=== PATIENT | female | born 1955 | race Caucasian/White ===

== ENCOUNTER 2018-06-06 14:26 | Inpatient (IN) | payer OTHER ==
[2018-06-06] MEDS ORDERED: VANCOMYCIN IV PER PHARMACY 1 EACH MISC MISCELLANE PRN (16:53)
--- NOTE | 2018-06-06 16:57 | ED ---
Extremity Problem HPI - General Chief complaint: Extremity Problem,Nontraumatic Stated complaint: infection in leg-sent by Time Seen by Provider: 06/06/18 15:00 Source: patient, RN notes reviewed Mode of arrival: ambulatory Limitations: no limitations - History of Present Illness Initial comments: This is a 63-year-old female presents emergency Department complaining of a leg infection on her left leg. Patient states she scraped and knee a over a week ago ago that area looked infected so she started on clindamycin. Patient states she's been on clinical myosin for 6 days and has not gotten any better and now her lower leg is more swollen and is more erythematous as well as tender. Patient denies any fever chills. Patient denies any calf tender. Patient denies any other area of redness or swelling. Patient denies any other problems at this time. Patient did see her primary medical care doctor and he wanted her sent in and admitted because she failed outpatient treatment. - Related Data Home Medications Medication Instructions Recorded Confirmed Aspirin EC [Ecotrin Low Dose] 162 mg PO DAILY 06/06/18 06/06/18 Clindamycin HCl 300 mg PO Q12HR 06/06/18 06/06/18 Levothyroxine Sodium 100 mcg PO DAILY 06/06/18 06/06/18 PARoxetine [Paxil] 20 mg PO DAILY 06/06/18 06/06/18 Allergies Allergy/AdvReac Type Severity Reaction Status Date / Time Penicillins Allergy Rash/Hives Verified 06/06/18 16:36 Review of Systems ROS Statement: Those systems with pertinent positive or pertinent negative responses have been documented in the HPI. ROS Other: All systems not noted in ROS Statement are negative. Past Medical History Past Medical History: Thyroid Disorder History of Any Multi-Drug Resistant Organisms: None Reported Additional Past Surgical History / Comment(s): vein stripping Past Psychological History: Anxiety Smoking Status: Current every day smoker Past Alcohol Use History: Occasional Past Drug Use History: None Reported General Exam - General Exam Comments Initial Comments: GENERAL: Patient is well-developed and well-nourished. Patient is nontoxic and well- hydrated and is in mild distress. ENT: Neck is soft and supple. No significant lymphadenopathy is noted. Oropharynx is clear. Moist mucous membranes. Neck has full range of motion without eliciting any pain. EYES: The sclera were anicteric and conjunctiva were pink and moist. Extraocular movements were intact and pupils were equal round and reactive to light. Eyelids were unremarkable. PULMONARY: Unlabored respirations. Good breath sounds bilaterally. No audible rales rhonchi or wheezing was noted. CARDIOVASCULAR: There is a regular rate and rhythm without any murmurs gallops or rubs. ABDOMEN: Soft and nontender with normal bowel sounds. SKIN: There is a superficial abrasion in the infrapatellar region on her left leg the area around it is quite erythematous warm and tender. Patient's lower leg is very swollen erythematous warm and tender there is no calf tenderness.. NEUROLOGIC: Patient is alert and oriented x3. Cranial nerves II through XII are grossly intact. Motor and sensory are also intact. Normal speech, volume and content. Symmetrical smile. MUSCULOSKELETAL: Normal extremities with adequate strength and full range of motion. No lower extremity swelling or edema. No calf tenderness. LYMPHATICS: No significant lymphadenopathy is noted PSYCHIATRIC: Normal psychiatric evaluation. Limitations: no limitations Course Vital Signs 06/06/18 14:42 Temperature 98.3 F Pulse Rate 85 Respiratory 20 Rate Blood Pressure 150/79 O2 Sat by Pulse 96 Oximetry Medical Decision Making - Medical Decision Making EKG shows normal sinus rhythm at 64 bpm AK interval 244 QRS is 80 QT intervals 418 QTC is 431 per patient's EKG shows no ST segment elevation or depression or T wave abnormalities are noted. Patient's ultrasound shows a possible superficial nonocclusive femoral vein thrombosis. I spoke with Dr. Juarez she wanted the patient anticoagulated. I admitted the patient wrote admitting orders - Lab Data Result diagrams: 06/06/18 17:00 06/06/18 17:00 Lab Results 06/06/18 06/06/18 06/06/18 Range/Units 17:00 17:00 17:00 WBC 7.7 (3.8-10.6) k/uL RBC 4.01 (3.80-5.40) m/uL Hgb 12.6 (11.4-16.0) gm/dL Hct 39.1 (34.0-46.0) % MCV 97.3 (80.0-100.0) fL MCH 31.5 (25.0-35.0) pg MCHC 32.4 (31.0-37.0) g/dL RDW 13.3 (11.5-15.5) % Plt Count 274 (150-450) k/uL Neutrophils % 69 % Lymphocytes % 23 % Monocytes % 4 % Eosinophils % 3 % Basophils % 0 % Neutrophils # 5.3 (1.3-7.7) k/uL Lymphocytes # 1.7 (1.0-4.8) k/uL Monocytes # 0.3 (0-1.0) k/uL Eosinophils # 0.2 (0-0.7) k/uL Basophils # 0.0 (0-0.2) k/uL PT (9.0-12.0) sec INR (<1.2) APTT (22.0-30.0) sec Sodium 141 (137-145) mmol/L Potassium 4.1 (3.5-5.1) mmol/L Chloride 109 H (98-107) mmol/L Carbon Dioxide 25 (22-30) mmol/L Anion Gap 7 mmol/L BUN 12 (7-17) mg/dL Creatinine 0.60 (0.52-1.04) mg/dL Est GFR (CKD-EPI)AfAm >90 (>60 ml/min/1.73 sqM) Est GFR (CKD-EPI)NonAf >90 (>60 ml/min/1.73 sqM) Glucose 95 (74-99) mg/dL Plasma Lactic Acid [place] 0.8 (0.7-2.0) mmol/L Calcium 8.8 (8.4-10.2) mg/dL Total Bilirubin 0.5 (0.2-1.3) mg/dL AST 18 (14-36) U/L ALT 33 (9-52) U/L Alkaline Phosphatase 107 (38-126) U/L Total Protein 6.1 L (6.3-8.2) g/dL Albumin 3.5 (3.5-5.0) g/dL 06/06/18 Range/Units 17:00 WBC (3.8-10.6) k/uL RBC (3.80-5.40) m/uL Hgb (11.4-16.0) gm/dL Hct (34.0-46.0) % MCV (80.0-100.0) fL MCH (25.0-35.0) pg MCHC (31.0-37.0) g/dL RDW (11.5-15.5) % Plt Count (150-450) k/uL Neutrophils % % Lymphocytes % % Monocytes % % Eosinophils % % Basophils % % Neutrophils # (1.3-7.7) k/uL Lymphocytes # (1.0-4.8) k/uL Monocytes # (0-1.0) k/uL Eosinophils # (0-0.7) k/uL Basophils # (0-0.2) k/uL PT 9.6 (9.0-12.0) sec INR 1.0 (<1.2) APTT 22.6 (22.0-30.0) sec Sodium (137-145) mmol/L Potassium (3.5-5.1) mmol/L Chloride (98-107) mmol/L Carbon Dioxide (22-30) mmol/L Anion Gap mmol/L BUN (7-17) mg/dL Creatinine (0.52-1.04) mg/dL Est GFR (CKD-EPI)AfAm (>60 ml/min/1.73 sqM) Est GFR (CKD-EPI)NonAf (>60 ml/min/1.73 sqM) Glucose (74-99) mg/dL Plasma Lactic Acid [place] (0.7-2.0) mmol/L Calcium (8.4-10.2) mg/dL Total Bilirubin (0.2-1.3) mg/dL AST (14-36) U/L ALT (9-52) U/L Alkaline Phosphatase (38-126) U/L Total Protein (6.3-8.2) g/dL Albumin (3.5-5.0) g/dL Disposition Clinical Impression: Left leg cellulitis Disposition: ADMITTED IP TO THIS [facility] Referrals: Harry Juarez MD [Primary Care Provider] - 1-2 days Time of Disposition: 18:54
[2018-06-06] MEDS ORDERED: VANCOMYCIN 2,000 MG in SODIUM CHLORIDE 0.9% 500 ML IVPB ONE (17:15)
[2018-06-06 17:18] LABS: Basophils % (A) 0 %; Eosinophils # (A) 0.2 k/uL (0-0.7); Eosinophils % (A) 3 %; HCT 39.1 % (34.0-46.0); HGB 12.6 gm/dL (11.4-16.0); Lymphocytes # (A) 1.7 k/uL (1.0-4.8); Lymphocytes % (A) 23 %; MCH 31.5 pg (25.0-35.0); MCHC 32.4 g/dL (31.0-37.0); MCV 97.3 fL (80.0-100.0); Mean Platelet Volume 6.9; Monocytes # (A) 0.3 k/uL (0-1.0); Monocytes % (A) 4 %; Neutrophils # (A) 5.3 k/uL (1.3-7.7); Neutrophils % (A) 69 %; Platelet Count 274 k/uL (150-450); RBC 4.01 m/uL (3.80-5.40); RDW 13.3 % (11.5-15.5); WBC 7.7 k/uL (3.8-10.6)
[2018-06-06 17:29] LABS: ALT 33 U/L (9-52); AST 18 U/L (14-36); Albumin 3.5 g/dL (3.5-5.0); Alkaline Phosphatase 107 U/L (38-126); Anion Gap 7 mmol/L; Blood Urea Nitrogen 12 mg/dL (7-17); Calcium 8.8 mg/dL (8.4-10.2); Carbon Dioxide 25 mmol/L (22-30); Chloride 109 mmol/L (98-107); Glucose 95 mg/dL (74-99); Potassium 4.1 mmol/L (3.5-5.1); Sodium 141 mmol/L (137-145); Total Bilirubin 0.5 mg/dL (0.2-1.3); Total Protein 6.1 g/dL (6.3-8.2)
[2018-06-06 17:42] LABS: Partial Thromboplastin Time 22.6 sec (22.0-30.0); Prothrombin Time 9.6 sec (9.0-12.0)
--- NOTE | 2018-06-06 18:13 | US ---
EXAMINATION TYPE: US venous doppler duplex LE LT DATE OF EXAM: 06/06/2018 5:59 PM COMPARISON: NONE CLINICAL HISTORY: Pain. left leg infection and swelling, redness, h/o dvt and svt, vein stripping SIDE PERFORMED: Left TECHNIQUE: The lower extremity deep venous system is examined utilizing real time linear array sonog nathalie with graded compression, doppler sonography and color-flow sonography. VESSELS IMAGED: External Iliac Vein (EIV) Common Femoral Vein Deep Femoral Vein Greater Saphenous Vein * Femoral Vein Popliteal Vein Small Saphenous Vein * Proximal Calf Veins (* superficial vessels) FINDINGS: Grayscale, color doppler, spectral doppler imaging performed of the deep veins of the lower extremities. There is normal flow, compressibility, vascular waveforms. IMPRESSION: 1. NEGATIVE FOR ACUTE DVT, LEFT LOWER EXTREMITY. 2. However, internal echoes noted within a small segment of the upper greater saphenous femoral vein with tenderness and without complete focal compression, likely small segment nonocclusive subacute/c hronic superficial femoral vein thrombus of the left greater saphenous vein.
[2018-06-06] MEDS ORDERED: SODIUM CHLORIDE 0.9% 1,000 ML IV ONE (18:54)
[2018-06-06] MEDS ORDERED: HEPARIN SODIUM,PORCINE 10,000 UNIT/ML 1 ML VIAL IV ONE (18:56)
[2018-06-06] MEDS ORDERED: HYDROcodone/APAP 5-325MG 1 EACH TAB PO PRN (20:34)
[2018-06-06] MEDS: HEPARIN SOD,PORK IN 0.45% NACL 25,000 UNIT in 0.45% NACL 1 500ML.BAG IV SCH (22:32)
[2018-06-07 05:25] LABS: Basophils % (A) 1 %; Eosinophils # (A) 0.3 k/uL (0-0.7); Eosinophils % (A) 5 %; HCT 36.3 % (34.0-46.0); HGB 11.8 gm/dL (11.4-16.0); Lymphocytes # (A) 2.4 k/uL (1.0-4.8); Lymphocytes % (A) 35 %; MCH 31.9 pg (25.0-35.0); MCHC 32.6 g/dL (31.0-37.0); Mean Platelet Volume 6.5; Monocytes # (A) 0.3 k/uL (0-1.0); Monocytes % (A) 5 %; Neutrophils # (A) 3.5 k/uL (1.3-7.7); Neutrophils % (A) 53 %; Platelet Count 266 k/uL (150-450); RBC 3.71 m/uL (3.80-5.40); RDW 13.2 % (11.5-15.5); WBC 6.7 k/uL (3.8-10.6)
[2018-06-07 05:40] LABS: AST 16 U/L (14-36); Albumin 2.7 g/dL (3.5-5.0); Alkaline Phosphatase 82 U/L (38-126); Anion Gap 5 mmol/L; Blood Urea Nitrogen 11 mg/dL (7-17); Calcium 8.6 mg/dL (8.4-10.2); Carbon Dioxide 27 mmol/L (22-30); Chloride 110 mmol/L (98-107); Glucose 100 mg/dL (74-99); Potassium 4.5 mmol/L (3.5-5.1); Sodium 142 mmol/L (137-145); Total Bilirubin 0.4 mg/dL (0.2-1.3); Total Protein 5.1 g/dL (6.3-8.2)
[2018-06-07 06:16] LABS: ALT 29 U/L (9-52)
[2018-06-07] MEDS: VANCOMYCIN 1,750 MG in SODIUM CHLORIDE 0.9% 500 ML IVPB SCH ×2 (06:19→18:35)
[2018-06-07] MEDS: LEVOTHYROXINE 100 MCG TAB PO SCH (06:20)
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
--- NOTE | 2018-06-07 09:20 | XR ---
EXAMINATION TYPE: XR knee complete 3 views LT, XR tibia fibula 2 views LT DATE OF EXAM: 06/07/2018 COMPARISON: NONE HISTORY: 63-year-old female cellulitis FINDINGS: Left knee: Very subtle meniscal chondrocalcinosis in the lateral compartment. There is anterior soft tissue swel ling in the infrapatellar region. No knee joint effusion. No acute fracture, subluxation, or dislocat ion. Left tibia/fibula: Reticular densities throughout the subcutaneous adipose layer of the leg. No underlying periostitis o r osteolysis no acute fracture or dislocation. IMPRESSION: 1. Left knee: No acute osseous abnormality seen. Prominent anterior infrapatellar soft tissue swellin g could be due to cellulitis. No knee joint effusion. 2. Left tibia/fibula: Diffuse subcutaneous soft tissue swelling. Correlate for possibly etiologies grimm ch as edema from third spacing, venous stasis, or cellulitis.
[2018-06-07] MEDS: ASPIRIN 81 MG PO SCH (09:35)
[2018-06-07] MEDS: PARoxetine 20 MG TAB PO SCH (09:35)
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
[2018-06-07] MEDS: HEPARIN SOD,PORK IN 0.45% NACL 25,000 UNIT in 0.45% NACL 1 500ML.BAG IV SCH ×2 (13:02→22:02)
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
[2018-06-07] MEDS: NICOTINE 21MG/24HR PATCH TRANSDERM SCH (18:35)
[2018-06-07] MEDS: APIXABAN 5 MG TAB PO SCH (21:03)
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
[2018-06-08] MEDS: LEVOTHYROXINE 100 MCG TAB PO SCH (06:04)
[2018-06-08] MEDS: VANCOMYCIN 1,750 MG in SODIUM CHLORIDE 0.9% 500 ML IVPB SCH ×2 (06:04→16:28)
[2018-06-08] MEDS ORDERED: PANTOPRAZOLE 40 MG TABLET PO SCH (07:30)
[2018-06-08 08:35] LABS: Anion Gap 5 mmol/L; Blood Urea Nitrogen 10 mg/dL (7-17); Calcium 8.8 mg/dL (8.4-10.2); Carbon Dioxide 28 mmol/L (22-30); Chloride 108 mmol/L (98-107); Glucose 94 mg/dL (74-99); Potassium 4.3 mmol/L (3.5-5.1); Sodium 141 mmol/L (137-145)
[2018-06-08] MEDS: NICOTINE 21MG/24HR PATCH TRANSDERM SCH (08:47)
[2018-06-08] MEDS: PARoxetine 20 MG TAB PO SCH (08:48)
[2018-06-08] MEDS: APIXABAN 5 MG TAB PO SCH (08:48)
[2018-06-08] MEDS: ASPIRIN 81 MG PO SCH (08:48)
[2018-06-08] MEDS ORDERED: SILVER sulfADIAZINE Cream 400 GM 1 APPLIC APPLIC TOPICAL SCH (09:00)
[2018-06-08] MEDS ORDERED: APIXABAN 5 MG TAB PO STA (10:32)
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
[2018-06-08 14:24] VITALS: BP 133/81; PULSE 63; RESP 18; TEMP 98.3
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
[2018-06-08] MEDS ORDERED: VANCOMYCIN TROUGH DUE 1 EACH MISC MISCELLANE ONE (17:00)
[2018-06-08] MEDS ORDERED: APIXABAN 5 MG TAB PO SCH (21:00)
[2018-06-09] MEDS ORDERED: ASPIRIN 81 MG PO SCH (09:00)
== END 2018-06-08 18:43 | disposition home or self-care (01) | DRG 603 ==
LOC: EC 14:26 → 4MS4W 18:54
PROVIDERS: ADMIT Family Medicine; ATTEND Family Medicine
DX: L03.116 Cellulitis of left lower limb (principal); I82.412 Acute embolism and thrombosis of left femoral vein; I82.492 Acute embolism and thrombosis of other specified deep vein of left lower extremity; E03.9 Hypothyroidism, unspecified; E66.9 Obesity, unspecified; F17.210 Nicotine dependence, cigarettes, uncomplicated; F41.9 Anxiety disorder, unspecified; Z68.35 Body mass index [BMI] 35.0-35.9, adult; Z79.01 Long term (current) use of anticoagulants; Z82.49 Family history of ischemic heart disease and other diseases of the circulatory system; Z79.82 Long term (current) use of aspirin; Z79.890 Hormone replacement therapy; Z79.899 Other long term (current) drug therapy; Z88.0 Allergy status to penicillin
CPT/HCPCS: 36415; 80048; 80053; 80202; 83605; 85025; 85610; 85730; 87040; 93005; 96365; 96366; 99285

== ENCOUNTER → 2024-08-31 | Outpatient (CLI) | payer OTHER ==
--- NOTE | 2024-08-31 11:03 | XR ---
EXAMINATION TYPE: XR chest 2V DATE OF EXAM: 08/31/2024 COMPARISON: NONE HISTORY: Cough and congestion and fever TECHNIQUE: Frontal and lateral views of the chest are obtained. FINDINGS: There is no focal air space opacity, pleural effusion, or pneumothorax seen. The cardiac silhouette size is within normal limits. The osseous structures are intact. IMPRESSION: No acute cardiopulmonary process. [facility], Workstation: [facility], 08/31/2024 11:01 AM
== END | disposition home or self-care (01) ==
LOC: RADXRYALE 10:33
PROVIDERS: ATTEND Physician Assistant
DX: R05.1 Acute cough (principal); R09.89 Other specified symptoms and signs involving the circulatory and respiratory systems; R50.9 Fever, unspecified
CPT/HCPCS: 71046